=== PATIENT | female | born 1990 | race Caucasian/White ===

== ENCOUNTER 2016-12-05 04:10 | Inpatient (IN) | payer OTHER ==
[~2016-12-05] VITALS: Ht 154.9 cm; Wt 94.0 kg
[~2016-12-05 04:10] MED LIST: PRENATAL VIT; PROGESTERONE
[2016-12-05 04:40] VITALS: Ht 154.9 cm; Wt 94.0 kg
[2016-12-05 04:41] VITALS: BP 131/84; PULSE 86; RESP 18
[2016-12-05] MEDS ORDERED: LIDOCAINE 1% (MPF) 30 ML INJ INJ PRN (05:00)
[2016-12-05] MEDS ORDERED: OXYTOCIN 30 UNITS/LR 500 ML IV PRN (05:00)
[2016-12-05] MEDS ORDERED: BUTORPHANOL 2 MG INJ IV PRN (05:00)
[2016-12-05] MEDS ORDERED: LACTATED RINGER'S 1,000 ML IV PRN (05:00)
[2016-12-05] MEDS ORDERED: IBUPROFEN 600 MG TAB PO PRN (05:00)
[2016-12-05] MEDS ORDERED: MISOPROSTOL 200 MCG TAB PR PRN (05:00)
[2016-12-05] MEDS ORDERED: CARBOPROST 250 MCG INJ IM PRN (05:00)
[2016-12-05] MEDS ORDERED: OXYTOCIN 30 UNITS/LR 500 ML IV SCH ×3 (05:00→09:00)
[2016-12-05] MEDS ORDERED: METHYLERGONOVINE 0.2 MG INJ IM PRN (05:00)
[2016-12-05] MEDS ORDERED: AMPICILLIN 2 GM/NS (PMX) 100 ML IV ONE (05:00)
[2016-12-05] MEDS: LACTATED RINGER'S 1,000 ML IV SCH ×3 (05:36→13:05)
[2016-12-05 05:46] LABS: ADD SCAN DIFF NO
--- NOTE | 2016-12-05 05:46 | TRIAGE ---
OB Triage Datetime Report Generated by CPN: 12/05/2016 05:45 Datetime: 12/05/2016 05:37 Membrane Status: Intact Datetime: 12/05/2016 05:35 Stage of : Labor Datetime: 12/05/2016 05:20 Labor Evaluation Frequency: 2-5 Monitor Mode: External Duration (sec)2399: 40-90 Quality: Moderate Pattern: Normal: <= 5 Contractions in 10 Minutes Resting Tone [place]: Relaxed Heart Rate FHR Baseline Rate: 135 Monitor Mode: External US FHR Baseline Changes: No Baseline Change Variability: Moderate 6-25 bpm Accelerations: 15X15 Decelerations: None Category: Category I Comments: Period of FHR baseline at 125. Datetime: 12/05/2016 04:38 Vaginal Exam Dilatation (cms): 4.0 Effacement (%): 90 Station: -2 Exam By: JODY Vaginal Bleeding: None Cervix, Consistency: Soft Cervix, Position: Anterior Presentation 'A': Cephalic Datetime: 12/05/2016 04:34 Stage of : OB Triage Assessment Type: Triage Maternal Assessment Level of Consciousness: Fully Conscious DTR's/Clonus: DTRs 2+; No Clonus Headache: Denies Blurred Vision: No Respiratory Effort: Unlabored; Regular Rhythm; Equal Expansion Breath Sounds, Left: Clear and Equal Breath Sounds, Right: Clear and Equal Nausea/Vomiting: Denies RUQ Epigastric Pain: Denies Lower Extremities Edema: None Upper Extremities Edema: None Facial Edema: None Fall Risk Assessment History of Falling: (0) No Secondary Diagnosis: (0) No Ambulatory Aid: (0) Bedrest/Nurse Assist IV Therapy: (0) No Gait: (0) Normal/Bedrest/Immobile Mental Status: (0) Oriented to Own Ability Fall Score: 0 Fall Risk Score Definition: No Risk: No action required Datetime: 12/05/2016 04:33 Time of Arrival: 12/05/2016 04:10 EGA: 39.4 Arrived By: Wheelchair Arrived From: Home Chief Complaint: CXS X2 DAYS, STRONGER SINCE 2199 Movement: Present Contractions: Regular Time Contractions Began: 12/04/2016 22:00 Contractions: Q 5MIN Rupture of Membranes: Denies Vaginal Bleeding: None Vaginal Discharge: Denies Recent Sexual Intercouse: Denies Abdominal Trauma: Not Applicable Patient Complaints: Contractions Time Provider Notified: 12/05/2016 04:44 Provider Notified: MD KERR Initial Plan: EFM, ASSESSMENT, VE, CALL MD FOR ORDER
[2016-12-05 05:51] LABS: BASOPHILS % 0.3 % (0.0-2.0); EOSINOPHILS # 0.1 10^3/ul (0.0-0.5); HEMATOCRIT 39.6 % (37.0-47.0); HEMOGLOBIN 13.3 g/dl (12.0-16.0); MEAN CORPUSCULAR HEMOGLOBIN 29.2 pg (29.0-33.0); MEAN CORPUSCULAR HGB CONC 33.6 g/dl (32.0-37.0); MEAN CORPUSCULAR VOLUME 86.8 fl (82.0-101.0); MEAN PLATELET VOLUME 9.8 fl (7.4-10.4); MONOCYTE # 1.2 10^3/ul (0.3-0.9); MONOCYTES % 9.5 % (0.0-11.0); NEUTROPHIL # 9.5 10^3/ul (1.6-7.5); NEUTROPHILS % 73.2 % (39.0-77.0); PLATELET COUNT 224 10^3/UL (140-415); RED BLOOD COUNT 4.56 10^6/ul (4.20-5.40); RED CELL DISTRIBUTION WIDTH 14.9 % (11.5-14.5)
[2016-12-05 06:15] LABS: INR 0.87; PROTIME 11.8 Sec (12.2-14.2); PT RATIO 0.9
[2016-12-05 06:16] LABS: PARTIAL THROMBOPLASTIN TIME 28.6 Sec (25.0-35.0)
[2016-12-05 06:20] LABS: ADD UMIC YES; URINE BILIRUBIN (Dip) NEGATIVE (NEGATIVE); URINE BLOOD (Dip) TRACE (NEGATIVE); URINE COLOR LT. YELLOW (YELLOW); URINE GLUCOSE (Dip) NEGATIVE (NEGATIVE); URINE KETONES (Dip) NEGATIVE (NEGATIVE); URINE LEUKOCYTE ESTERASE (Dip) NEGATIVE (NEGATIVE); URINE NITRITE (Dip) NEGATIVE (NEGATIVE); URINE TOTAL PROTEIN (Dip) NEGATIVE (NEGATIVE); URINE UROBILINOGEN (Dip) 0.2 E.U./dL (0.1-1.0)
[2016-12-05 06:36] LABS: ALANINE AMINOTRANSFERASE 32 IU/L (13-69); ALBUMIN 3.4 g/dl (3.3-4.9); ALBUMIN/GLOBULIN RATIO 0.97; ALKALINE PHOSPHATASE 152 IU/L (42-121); ANION GAP 10 (8-16); ASPARTATE AMINO TRANSFERASE 23 IU/L (15-46); BILIRUBIN,INDIRECT 0.1 mg/dl (0-1.1); BILIRUBIN,TOTAL 0.1 mg/dl (0.2-1.3); BLOOD UREA NITROGEN 8 mg/dl (7-20); CALCIUM 9.1 mg/dl (8.4-10.2); CARBON DIOXIDE 21 mmol/L (21-31); CHLORIDE 107 mmol/L (97-110); CREATININE 0.53 mg/dl (0.44-1.00); GLUCOSE 76 mg/dl (70-220); POTASSIUM 3.9 mmol/L (3.5-5.1); SODIUM 134 mmol/L (135-144); TOTAL PROTEIN 6.9 g/dl (6.1-8.1)
--- NOTE | 2016-12-05 06:54 | HP ---
Date/Time of Note Date/Time of Note DATE: 12/05/16 TIME: 06:45 OB - History Hx of Present Free Text/Dictation 26 y.o A1(ectopic) at 39w4d c/o uterine contractions with intact membrane , initial VE 4cm 90% -2 GBS status unknown ampicillin initiated as protocol admitted for expectant management BP relatively high 141/93 130/84 PIH panel was sent Chief Complaint: uterine contractions Estimated Due Date: December 08, 2016 : 2 Para: 0 Spontaneous : 0 Therapeutic : 1 Care: Good Care Ultrasounds: Normal mid trimester US Obstetrical Complications: None Past Family/Social History * Past Medical, Surgical, Family and Obstetric Histories reviewed from chart. Blood Type: O+ Rubella: not immune RPR/VDRL: Negative GBS Status: Unknown HBsAG: Negative OB Admission Exam Vital Signs Vital Signs Vital Signs Date Time Temp Pulse Resp B/P Pulse Ox O2 Delivery O2 Flow Rate FiO2 12/05/16 04:41 98.1 86 18 131/84 Room Air Physical Exam HEENT: WNL Heart: Rhythm Normal Lungs: Clear, Equal Abdomen: WNL Extremities: Normal Reflexes: Normal Cervical Dilatation: 4cm Effacement: Other (90%) Station: -2 Membranes: Intact Amniotic Fluid: Unevaluable Heart Rate: 130's Accelerations: Accelerations Present Decelerations: No Decelerations Varibility: Moderate Contractions on Admission: < 5 Minutes Apart Intensity: Moderate Last 72 hours Lab Results CBC & BMP 12/05/16 05:14 12/05/16 05:15 Liver Function Test 12/05/16 05:14 Alanine Aminotransferase (ALT/SGPT) 32 Albumin 3.4 Alkaline Phosphatase 152 H Aspartate Amino Transf (AST/SGOT) 23 Direct Bilirubin 0.00 Total Protein 6.9 OB Assessment/Plan Reason for admission: active labor Other Assessment: IUP 39w4d Plan: Expectant Management RAFFAELE KERR MD December 05, 2016 06:54
[2016-12-05 07:09] LABS: SQUAMOUS EPITHELIAL CELL,UR FEW; URINE RBCS 0-2 /HPF (0)
[2016-12-05 07:10] LABS: BACTERIA,URINE OCCASIONAL
[2016-12-05] MEDS ORDERED: AMPICILLIN 1 GM/NS (PMX) 50 ML IV SCH (09:00)
[2016-12-05] MEDS ORDERED: FENTAnyl 2MCG/ML-ROPIV 0.2% 100 ML ONE (09:40)
[2016-12-05] MEDS ORDERED: DIPHENHYDRAMINE 50 MG INJ IV PRN (11:00)
[2016-12-05] MEDS ORDERED: FENTAnyl 2MCG/ML-ROPIV 0.2% 100 ML BAG EPI SCH (11:00)
[2016-12-05] MEDS ORDERED: HYDROmorphONE 1 MG/ML SYG IV PRN ×2 (11:00)
[2016-12-05] MEDS ORDERED: PROCHLORPERAZINE 10 MG INJ IV PRN (11:00)
[2016-12-05] MEDS ORDERED: KETOROLAC 30 MG INJ IV PRN (11:00)
[2016-12-05] MEDS ORDERED: ONDANSETRON 4 MG INJ IV PRN ×2 (11:00→20:00)
[2016-12-05] MEDS ORDERED: NALOXONE (0.4 MG/ML) INJ IV PRN (11:00)
--- NOTE | 2016-12-05 18:23 | LDN ---
Date/Time of Note Date/Time of Note DATE: 12/05/16 TIME: 18:20 Delivery Summary Normal spontaneous vaginal delivery of a baby girl from OA position cord clamped after stopped pulsation placenta spontaneous expulsion inspected complete no perineal laceration estimated blood loss 250 mL Weeks of Gestation 39 weeks 4 days Placenta Delivered: Spontaneously Meconium: none Episiotomy: No Laceration repair: None Anesthesia type: Epidural Estimated blood loss: 250 Sponge & Needle done & correct: Yes All needle counts correct: Yes Any foreign bodies felt in the: No Problems: Infant Delivery Information Sex Sex: female Apgars 1 Minute: 9 5 Minute: 9 Suctioning Nose & mouth suctioned at margo: Yes Delee suction performed: No Umbilical Cord Umbilical cord with: 3 Vessels Cord presentations: no nuchal cord Cord Blood was obtained: Yes VIOLET MIRANDA MD December 05, 2016 18:23
[2016-12-05] MEDS ORDERED: LANOLIN 7 GM TUBE TOP PRN (20:00)
[2016-12-05] MEDS ORDERED: ACETAMINOPHEN 325 MG TAB PO PRN (20:00)
[2016-12-05] MEDS ORDERED: BENZOCAINE 20% 56 ML SPRAY TOP PRN (20:00)
[2016-12-05] MEDS ORDERED: DIBUCAINE 1% 30 GM OINT PR PRN (20:00)
[2016-12-05] MEDS ORDERED: ACETAMINOPHEN/CODEINE #3 TAB PO PRN ×2 (20:00)
[2016-12-05] MEDS ORDERED: OXYCODONE/ASPIRIN (4.88/325) TAB PO PRN ×2 (20:00)
[2016-12-05] MEDS ORDERED: WITCH HAZEL/GLYCERIN PAD PR PRN (20:00)
[2016-12-05 21:00] VITALS: BP 129/64; PULSE 102; RESP 18
[2016-12-05] MEDS: SENNA/DOCUSATE NA (8.6MG/50MG) TAB PO SCH (23:04)
[2016-12-05] MEDS: OXYTOCIN 30 UNITS/LR 500 ML IV SCH (23:04)
[2016-12-05] MEDS: IBUPROFEN 600 MG TAB PO SCH (23:53)
[2016-12-06 00:27] VITALS: BP 118/72; PULSE 72; RESP 18
[2016-12-06 04:00] VITALS: BP 107/64; PULSE 104; RESP 18
[2016-12-06] MEDS: IBUPROFEN 600 MG TAB PO SCH ×4 (05:41→23:28)
[2016-12-06 07:26] LABS: ADD SCAN DIFF NO
[2016-12-06 07:30] LABS: BASOPHILS % 0.3 % (0.0-2.0); EOSINOPHILS # 0.2 10^3/ul (0.0-0.5); EOSINOPHILS % 1.3 % (0.0-7.0); HEMATOCRIT 34.7 % (37.0-47.0); HEMOGLOBIN 11.3 g/dl (12.0-16.0); LYMPHOCYTES % 14.1 % (15.0-51.0); MEAN CORPUSCULAR HEMOGLOBIN 28.6 pg (29.0-33.0); MEAN CORPUSCULAR HGB CONC 32.6 g/dl (32.0-37.0); MEAN CORPUSCULAR VOLUME 87.8 fl (82.0-101.0); MEAN PLATELET VOLUME 9.9 fl (7.4-10.4); MONOCYTE # 1.2 10^3/ul (0.3-0.9); MONOCYTES % 8.4 % (0.0-11.0); NEUTROPHIL # 10.7 10^3/ul (1.6-7.5); NEUTROPHILS % 75.1 % (39.0-77.0); PLATELET COUNT 193 10^3/UL (140-415); RED BLOOD COUNT 3.95 10^6/ul (4.20-5.40); WHITE BLOOD COUNT 14.3 10^3/ul (4.8-10.8)
[2016-12-06 08:10] VITALS: BP 104/69; PULSE 89; RESP 20
[2016-12-06] MEDS: SENNA/DOCUSATE NA (8.6MG/50MG) TAB PO SCH ×2 (09:15→20:52)
[2016-12-06 12:31] VITALS: BP 112/73; PULSE 90; RESP 20
[2016-12-06 16:24] VITALS: BP 114/71; PULSE 87; RESP 20
--- NOTE | 2016-12-06 17:29 | PN ---
Date/Time of Note Date/Time of Note DATE: 12/06/16 TIME: 17:29 OB Subjective Subjective Subjective day 1 Afebrile vital signs stable abdomen soft uterus firm lochia normal extremity normal ambulation encouraged Laboratory Tests Test 12/06/16 07:15 White Blood Count 14.310^3/ul Red Blood Count 3.9510^6/ul Hemoglobin 11.3g/dl Hematocrit 34.7% Mean Corpuscular Volume 87.8fl Mean Corpuscular Hemoglobin 28.6pg Mean Corpuscular Hemoglobin Concent 32.6g/dl Red Cell Distribution Width 15.0% Platelet Count 20474^3/UL Mean Platelet Volume 9.9fl Neutrophils % 75.1% Lymphocytes % 14.1% Monocytes % 8.4% Eosinophils % 1.3% Basophils % 0.3% Nucleated Red Blood Cells % 0.0/100WBC Neutrophils # 10.710^3/ul Lymphocytes # 2.010^3/ul Monocytes # 1.210^3/ul Eosinophils # 0.210^3/ul Basophils # 0.010^3/ul Nucleated Red Blood Cells # 0.010^3/ul Current Medications Medications (Trade) Dose Ordered Sig/Rashad Route PRN Reason Start Time Stop Time Status Last Admin Dose Admin Lactated Ringer's 1,000 ml @ 125 mls/hr Q8H IV 12/05/16 04:45 12/05/16 19:33 DC 12/05/16 13:05 Ampicillin 100 ml @ 100 mls/hr ONCE ONCE IV 12/05/16 05:00 12/05/16 05:59 DC 12/05/16 05:36 Ampicillin (Ampicillin 1 Gm/ NS (Pmx)) 50 ml @ 100 mls/hr Q4H IV 12/05/16 09:00 12/05/16 19:33 DC 12/05/16 09:04 Butorphanol Tartrate (Stadol) 2 mg Q2H PRN IV PAIN 12/05/16 05:00 12/05/16 19:33 DC Lidocaine 30 ml 30 ml ONCE PRN INJ EPISIOTOMY/TEARING 12/05/16 05:00 12/05/16 19:33 DC Oxytocin/Lactated Ringer's 500 ml @ 125 mls/hr ONCE -MAY REPEAT X1 IV 12/05/16 05:00 12/05/16 19:33 DC 12/05/16 18:40 Oxytocin/Lactated Ringer's 500 ml @ 125 mls/hr ONCE IV 12/05/16 05:00 12/05/16 19:33 DC Ibuprofen 600 mg 600 mg ONCE PRN PO Mild Pain (Pain Score 1-3) 12/05/16 05:00 12/05/16 19:33 DC Lactated Ringer's 1,000 ml @ 2,000 mls/hr Q30M PRN IV PRE-EPIDURAL BOLUS 12/05/16 05:00 12/05/16 19:33 DC Oxytocin/Lactated Ringer's 500 ml @ 0 mls/hr ONCE PRN IV For Hemorrhage Management 12/05/16 05:00 12/05/16 19:33 DC Methylergonovine Maleate (Methergine) 0.2 mg ONCE PRN IM VAGINAL BLEEDING 12/05/16 05:00 12/05/16 19:33 DC Carboprost Tromethamine (Hemabate) 250 mcg ONCE PRN IM VAGINAL BLEEDING 12/05/16 05:00 12/05/16 19:33 DC Misoprostol 1000 mcg 1,000 mcg ONCE PRN NH VAGINAL BLEEDING 12/05/16 05:00 12/05/16 19:33 DC Oxytocin/Lactated Ringer's 500 ml @ 0 mls/hr Q0M IV 12/05/16 09:00 12/05/16 19:33 DC 12/05/16 13:13 Fentanyl/ Ropivacaine 100 ml @ ud STK-MED ONCE .ROUTE 12/05/16 09:40 12/05/16 09:41 DC Naloxone HCl (Narcan) 0.1 mg Q2M PRN IV FOR RESP RATE 8 OR LESS 12/05/16 11:00 12/05/16 19:33 DC Ketorolac Tromethamine (Toradol) 30 mg Q6H PRN IV PAIN 12/05/16 11:00 12/05/16 19:33 DC Hydromorphone HCl (Dilaudid) 0.2 mg Q3H PRN IV PAIN LEVEL 1-5 12/05/16 11:00 12/05/16 19:33 DC Hydromorphone HCl (Dilaudid) 0.4 mg Q3H PRN IV PAIN LEVEL 6-10 12/05/16 11:00 12/05/16 19:33 DC Diphenhydramine HCl (Benadryl) 25 mg Q6H PRN IV ITCHING 12/05/16 11:00 12/05/16 19:33 DC Ondansetron HCl (Zofran Inj) 4 mg Q6H PRN IV NAUSEA AND/OR VOMITING 12/05/16 11:00 12/05/16 19:33 DC 12/05/16 10:44 Prochlorperazine (Compazine Inj) 10 mg ONCE PRN IV NAUSEA AND/OR VOMITING 12/05/16 11:00 12/05/16 19:33 DC Fentanyl/ Ropivacaine 100 ml 100 ml EPIDURAL INFUSION EPI 12/05/16 11:00 12/05/16 19:33 DC Oxytocin/Lactated Ringer's 500 ml @ 125 mls/hr Q4H IV 12/05/16 19:31 12/06/16 03:30 DC 12/05/16 23:04 Ibuprofen (Motrin) 600 mg Q6 PO 12/06/16 00:00 12/06/16 13:27 Acetaminophen (Tylenol Tab) 650 mg Q4H PRN PO PAIN LEVEL 1-5 12/05/16 20:00 Acetaminophen/ Codeine Phosphate (Tylenol No.3) 1 tab Q4H PRN PO PAIN LEVEL 1-5 12/05/16 20:00 12/06/16 09:15 Acetaminophen/ Codeine Phosphate (Tylenol No.3) 2 tab Q4H PRN PO PAIN LEVEL 6-10 12/05/16 20:00 Oxycodone/Aspirin (Percodan) 1 tab Q3H PRN PO PAIN LEVEL 1-5 12/05/16 20:00 Oxycodone/Aspirin (Percodan) 2 tab Q3H PRN PO PAIN LEVEL 6-10 12/05/16 20:00 Ondansetron HCl (Zofran Inj) 4 mg Q6H PRN IV NAUSEA AND/OR VOMITING 12/05/16 20:00 Senna/Docusate Sodium (Senokot-S) 1 tab BID PO 12/05/16 21:00 12/06/16 09:15 Witch July/ Glycerin (Tucks Pads) 1 pad BEDSIDE MEDICATION PRN NH HEMORRHOID/EPISIOTMY PAIN 12/05/16 20:00 12/05/16 23:52 Benzocaine (Dermoplast [place]) 1 spray BEDSIDE MEDICATION PRN TOP HEMORRHOID/EPISIOTMY PAIN 12/05/16 20:00 12/05/16 23:53 Dibucaine (Nupercainal) 1 applic BEDSIDE MEDICATION PRN NH HEMORRHOID/EPISIOTMY PAIN 12/05/16 20:00 Lanolin ([id number]) 1 applic BEDSIDE MEDICATION PRN TOP BEDSIDE FOR [place] TO NIPPLES 12/05/16 20:00 12/05/16 23:53 Measles/Mumps/ Rubella Vaccine Live (Mmr Ii Vaccine) 0.5 ml ONCE ONCE SC* 12/07/16 09:00 12/07/16 09:01 VIOLET MIRANDA MD December 06, 2016 17:29
[2016-12-06 19:45] VITALS: BP 129/70; PULSE 89; RESP 20
[2016-12-07] MEDS: OXYTOCIN 30 UNITS/LR 500 ML IV SCH (00:27)
[2016-12-07 04:00] VITALS: BP 117/62; PULSE 82; RESP 19
[2016-12-07] MEDS: IBUPROFEN 600 MG TAB PO SCH ×2 (05:52→12:07)
[2016-12-07 08:00] VITALS: BP 111/72; PULSE 83; RESP 18
[2016-12-07] MEDS ORDERED: MEASLES,MUMPS,RUBELLA VACCINE INJ SC* ONE (09:00)
[2016-12-07] MEDS: SENNA/DOCUSATE NA (8.6MG/50MG) TAB PO SCH (09:36)
--- NOTE | 2016-12-07 13:12 | PD.PPDC ---
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
--- NOTE | 2016-12-07 13:17 | DS ---
Date/Time of Note Date/Time of Note DATE: 12/07/16 TIME: 13:16 Obstetrical Discharge Record Final Diagnosis Final Diagnosis: Term delivered Vaginal Delivery Obstetrical Delivery: Spontaneous Complications Augmentation: Yes Induction: No Condition on Discharge Physical Assessment Last Vitals: T=98.0 BP 111/72 Voiding: Yes Bowel Movement: Yes Breast: Soft, non-tender Fundus: Firm Calf Tenderness: No Patient Condition: Good RAFIQ ROSADO MD December 07, 2016 13:17
[2016-12-07 15:30] VITALS: BP 115/74; PULSE 78; RESP 20
== END 2016-12-07 15:55 | disposition home or self-care (01) | DRG 775 ==
LOC: OBT 04:10 → L-D 04:10 → OBT 04:44 → L-D 04:44 → PP1 20:58
PROVIDERS: ADMIT Obstetrics & Gynecology; ATTEND Obstetrics & Gynecology
PROC: 10E0XZZ Delivery of Products of Conception, External Approach (ICD-10-PCS; principal; 2016-12-05)
DX: O80 Encounter for full-term uncomplicated delivery (principal); Z37.0 Single live birth; Z3A.39 39 weeks gestation of pregnancy
CPT/HCPCS: 36415; 62319; 80053; 81001; 84560; 85025; 85610; 85730; 86592; 86900; 86901; 87340; G0463; J0290; J2405; J2590; J3010; J7120